=== PATIENT | female | born 1965 | race African-American/Black ===

== ENCOUNTER 2016-06-16 21:37 | Emergency (ER) | payer OTHER ==
[2016-06-16] MEDS ORDERED: ASPIRIN PO STA (21:47)
[2016-06-16 22:04] LABS: MANUAL DIFF NEEDED? NO
--- NOTE | 2016-06-16 22:04 | EKG Report ---
Test Performed on : 06/16/2016 9:54:00 PM Test Reason : CHEST PAIN Blood Pressure : / mmHG Vent. Rate : 086 BPM Atrial Rate : 086 BPM P-R Int : 126 ms QRS Dur : 078 ms QT Int : 374 ms P-R-T Axes : 046 011 088 degrees QTc Int : 447 ms Normal sinus rhythm. Normal ECG When compared with ECG of 06-MAY-2016 10:34, No significant change was found Unconfirmed Result
[2016-06-16 22:06] LABS: BASO% 0.3 % (0.0-0.8); EOS% 1.5 % (0.0-10.0); HEMATOCRIT 30.5 % (37.0-47.0); HEMOGLOBIN 9.9 g/dL (12.0-16.0); IMM GRAN# 0.01 X1000 (0.0-0.04); IMM GRAN% 0.2 % (0.0-0.5); LYMPH# 2.31 X1000 (1.2-3.4); LYMPH% 34.9 % (20.5-51.1); MCH 25.8 PG (27-31); MCHC 32.5 g/dL (33-37); MCV 79.4 FL (81-99); MONO% 9.1 % (1.7-9.3); PLT 282 X1000 (130-400); RBC 3.84 XMIL (4.2-5.4)
[2016-06-16 22:26] LABS: AGAP 11; ALBUMIN 3.7 g/dL (3.5-5.0); ALKALINE PHOSPHATASE 95 U/L (32-104); BUN 16 mg/dL (8-22); CALCIUM 9.4 mg/dL (8.8-10.2); CHLORIDE 98 mmol/L (98-107); COSMO 271; GOT 19 U/L (10-30); GPT 16 U/L (10-36); MAGNESIUM 1.8 mg/dL (1.5-2.7); POTASSIUM 3.6 mmol/L (3.5-5.1); SODIUM 132 mmol/L (136-145); TCO2 23 mmol/L (25-35)
[2016-06-16 22:31] LABS: CK PROFILE 215 U/L (24-173)
[2016-06-16 23:00] LABS: CK INDEX 2.6 (0.0-2.5); CK-MB 5.67 ng/mL (0.0-5.0)
--- NOTE | 2016-06-16 23:37 | PROVIDER DOCUMENTATION ---
HPI-Abdominal Pain/GI Problem - General Source: patient - History of Present Illness-ABD Nature of Presenting Problems: 50 year old F presents to the ED with a cc of nausea, vomiting, and hot flashes with an onset of this morning. PT states that she has vomited x2 today. PT states this evening she developed chest pressure. PT also c/o left ear feeling weird. Severity in ED: reports: mild Onset/Duration: reports: this morning Timing: reports: still present Activities at Onset: reports: none Modifying Factors: improves with: nothing Associated Symptoms: reports: headaches, nausea, vomiting # of Vomiting Episodes: 2 Bruising or Bleeding Gums?: No Similar Symptoms Previously?: No Recently seen or treated by another doctor?: No <Rosa M Blevins - Last Filed: 06/16/16 23:49> <Kenny Stallings - Last Filed: 06/17/16 02:09> - General Chief Complaint: Chest Pain Stated Complaint: CHEST PAIN Time Seen by Provider: 06/16/16 22:50 Allergies/Adverse Reactions: Patient Allergies Allergy/AdvReac Type Severity Reaction Status Date / Time metoclopramide HCl * Allergy Intermediate ITCHING Verified 06/16/16 21:43 [From Reglan] ondansetron HCl * Allergy Intermediate ITCHING Verified 06/16/16 21:43 [From Zofran] ketorolac tromethamine * Allergy Mild ITCHING Verified 06/16/16 21:43 [From Toradol] prochlorperazine edisylate * Allergy ITCHING Verified 06/16/16 21:43 [From Compazine] prochlorperazine maleate * Allergy ITCHING Verified 06/16/16 21:43 [From Compazine] tramadol HCl * [From Ultram] AdvReac Mild HEADACHE Verified 06/16/16 21:43 Home Medications: Home Medication List Medication Instructions Recorded Confirmed Last Taken Type Duloxetine HCl [Cymbalta] 60 mg PO BID 11/30/11 06/16/16 03/26/16 History Docusate Sodium [Colace] 100 mg PO BID #60 capsule 08/17/12 06/16/16 03/26/16 Rx Esomeprazole [Nexium] 40 mg PO DAILY 03/17/14 06/16/16 03/26/16 History Zolpidem [Ambien] 10 mg PO QHS 03/17/14 06/16/16 03/26/16 History Insulin Glargine [Lantus] 43 unit SUBQ BID 11/19/14 06/16/16 03/26/16 History Furosemide [Lasix] 80 mg PO DAILY 12/08/15 06/16/16 03/26/16 History Gabapentin [Neurontin] 600 mg PO Q8H 12/08/15 06/16/16 03/26/16 History Insulin Lispro [Humalog] 35 units SUBQ TID 12/08/15 06/16/16 03/26/16 History Multivit-Min/Iron/Folic/Lutein 1 tab PO DAILY 12/08/15 06/16/16 03/26/16 History [Centrum Silver Women Tablet] Potassium Chloride [Klor-Con M20] 20 meq PO DAILY 12/08/15 06/16/16 03/26/16 History Pravastatin Sodium [Pravachol] 1 tab PO QHS 12/08/15 06/16/16 03/26/16 History Spironolactone 25 mg PO DAILY 12/08/15 06/16/16 03/26/16 History Albuterol Sulfate [Albuterol 18 gm IH 3-4XDAY PRN PRN #1 02/26/16 06/16/1603/26 Rx Sulfate Hfa] hfa.[email or web address] Acetaminophen with Codeine 1 each PO Q4H PRN PRN #20 tablet 03/26/16 06/16/16 Unknown Rx [Tylenol with Codeine #3] Linaclotide [Linzess] 290 mcg PO DAILY PRN PRN #14 03/26/16 06/16/16 Unknown Rx capsule Famotidine [Pepcid] 20 mg PO DAILY #20 tablet 05/06/16 06/16/16 Unknown Rx Hydrocodone/APAP 7.5 mg/325 mg 1 each PO Q6H PRN PRN #10 tablet 05/06/16 Unknown Rx [[place]-7.5] Ibuprofen [Motrin] 600 mg PO Q8H PRN PRN #14 tablet 05/06/16 06/16/16 Unknown Rx Cephalexin [Keflex] 500 mg PO BID #14 capsule 06/17/16 Unknown Rx Promethazine [Phenergan] 25 mg PO Q6H PRN PRN #20 tablet 06/17/16 Unknown Rx Review of Systems - Adult - REVIEW OF SYSTEMS - ADULT Constitutional: denies: chills, fever Eyes: reports: no symptoms reported Ears, Nose, Mouth & Throat: denies: sinus problem, throat pain Cardiovascular: reports: chest pain. denies: palpitations Respiratory: denies: cough, shortness of breath Gastrointestinal: reports: nausea, vomiting. denies: abdominal pain Genitourinary: reports: no symptoms reported Musculoskeletal: reports: no symptoms reported Integumentary: reports: no symptoms reported Neurological: reports: headache/migraines. denies: dizziness/vertigo Psychiatric: reports: no symptoms reported Endocrine: reports: no symptoms reported Hematologic/Lymphatic: reports: no symptoms reported Allergic/Immunologic: reports: no symptoms reported All Other Systems: Reviewed and Negative <Rosa M Blevins - Last Filed: 06/16/16 23:49> Past History - Adult - PAST MEDICAL HISTORY-ADULT Review of Records: reports: Nursing Assessment Review, Medications Reviewed Major Childhood Illnesses: reports: denies history Cardiovascular: reports: CAD, HTN, hyperlipidemia, [place] Respiratory: reports: asthma, sleep apnea Gastrointestinal: reports: GERD Obstetrical/Gynecological: reports: denies history Genitourinary: reports: denies history Musculoskeletal: reports: chronic pain Neurological: reports: CVA Psychiatric: reports: anxiety, depression Endocrine/Immune: reports: Diabetes Other Conditions: reports: denies history Additional History: frequent ER visits - PRIOR SURGERIES/PROCEDURES Surgical/Procedure History: reports: CABG, cholecystectomy, back/neck, gastric bypass - IMMUNIZATION STATUS Childhood Immunizations: UTD, See Nurse Assessment Flu Vaccine: See Nurse Assessment - FAMILY HISTORY Family History: reviewed, not pertinent, CAD over 55 yo - SOCIAL HISTORY Smoking: non-smoker Substance Use: none/never Alcohol Use Frequency: never <Rosa M Blevins - Last Filed: 06/16/16 23:49> Physical Exam-General - PHYSICAL EXAM-ADULT Initial Vital Signs Reviewed: Yes - CONSTITUTIONAL General Appearance: appears well, alert, no apparent distress - HEAD, EARS, NOSE, MOUTH & THROAT HENMT: TM abnormal (fluid behing left TM) - RESPIRATORY Respiratory: chest non-tender, lungs clear, normal breath sounds - CARDIOVASCULAR Cardiovascular: normal peripheral pulses, regular rate, rhythm, no edema - SKIN Integumentary: normal color, normal turgor, warm/dry - PSYCHIATRIC Psych/Mental Status: normal mood/affect, normal thought content, normal thought process, oriented x 3 <GenRosa M gould - Last Filed: 06/16/16 23:49> Progress - EKG 1 Time of EKG reading by physician:: 21:54 EKG Read and Signed by:: Modesto Winchester EKG Interpretation (*Must complete 3 of following elements*): Normal Rate: 86 Rhythm: NSR <GenRosa M - Last Filed: 06/16/16 23:49> - REASSESSMENT Reassessment #1 Time Reassessed: 02:07 (Pt resting comfortably. Treating pyelonephritis identified on CT. Pt has refused to give urine sample but now has requested RN cath her for the sample. ) - CT/MRI 1 CT Study: Abdomen, Pelvis Impression: Abnormal (Lobulated fibroid uterus. Minor irregular enhancement involving the R superior pole kidney is nonspecific. Subtle pyelonephritis could have this appearance. Minor atelectasis dependently in the lung bases. - radiology) <Kenny Stallings - Last Filed: 06/17/16 02:09> Departure <GenRosa M - Last Filed: 06/16/16 23:49> - Departure Time of Disposition Order: 02:07 Certified Medical Emergency: Emergent <Kenny Stallings - Last Filed: 06/17/16 02:09> - Departure DIAGNOSIS: Pyelonephritis Disposition: HOME 01 Condition: Stable Additional Instructions: ED Follow Up Instructions: You have been treated by a care provider in the Emergency Department. These instructions are being provided to you so you can have an understanding of how to care for yourself upon discharge. Upon discharge from the Emergency Department, you are responsible for making arrangements for follow-up care by a physician of your choice. Take all prescribed medications as directed. Return to the Emergency Department immediately for any new or worsening symptoms. You may call the Physician Referral phone number at [phone] to obtain a list of Physicians who are taking new patients. Prescriptions: Cephalexin [Keflex] 500 mg PO BID #14 capsule Promethazine [Phenergan] 25 mg PO Q6H PRN PRN #20 tablet PRN Reason: Nausea Referrals: None,PCP [Primary Care Provider] - Attestation - Scribe Verification/Attestation Scribe:: Rosa M Blevins Acting as Scribe for:: Kenny Stallings Scribe documention review:: This chart was documented by a scribe and accurately reflects the service the provider performed and the decisions made by the provider. <Rosa M Blevins - Last Filed: 06/16/16 23:49> - Physician/ LOUIS Attestation Patient care was provided by Advanced Practice Provider:: Yes Advanced Practice Provider:: Kenny Stallings Advanced Practice Provider documentation review:: The Mid-level provider documentation, treatment plan and medical decision making was reviewed by the physician who agrees with all treatment and medical decision making by the MLP. <Kenny Stallings - Last Filed: 06/17/16 02:09> Physician Attestation
[2016-06-16 23:51] LABS: INR 1.03 (0.86-1.15); PROTIME 13.8 Seconds (12.1-15.5)
[2016-06-16 23:52] LABS: PTT PL 29.8 Seconds (22.6-43.9)
[2016-06-17] MEDS ORDERED: NS 1,000 ML IV ONE (00:02)
[2016-06-17] MEDS ORDERED: PHENERGAN IV ONE (00:03)
[2016-06-17] MEDS ORDERED: SODIUM CHLORIDE 0.9% INJ ONE (00:03)
[2016-06-17] MEDS ORDERED: ROCEPHIN 1 GM/NS 50 ML IV ONE (01:41)
[2016-06-17] MEDS ORDERED: G.I. COCKTAIL PO ONE (01:42)
[2016-06-17 02:10] LABS: URINE SOURCE CLEAN CATCH
[2016-06-17 02:46] VITALS: BP 126/68
[2016-06-17 02:51] LABS: BILIRUBIN URINE NEGATIVE (NEGATIVE); BLOOD URINE 4+ (NEGATIVE); CLARITY SL. CLOUDY (CLEAR); COLOR PINK; GLUCOSE URINE NEGATIVE (NEGATIVE); LEUKOCYTES URINE 1+ (NEGATIVE); NITRITE URINE NEGATIVE (NEGATIVE); PH URINE 6.5; PROTEIN URINE TRACE mg/dL (NEGATIVE); SP GRAVITY URINE 1.005; URINE CULTURE PL NEEDED? YES; URINE EPITHELIAL CELLS <10 /HPF (<10); URINE RBC TNTC /HPF (<10); URINE WBC <10 /HPF (<10); UROBILINOGEN URINE NORMAL
--- NOTE | 2016-06-17 07:54 | Diag Imaging Result Document ---
PROCEDURE NAME: CHEST-2 VIEWS - 06/16/2016 FRONTAL AND LATERAL CHEST, TWO VIEWS: COMPARISON: 05/06/2016. FINDINGS: Sternal wires and surgical clips are present. Poor inspiratory effort. The heart is not enlarged. The vessels are not distended. Questionable trace left effusion. Minimal atelectasis in the left base. No consolidation. No free air beneath the diaphragm. IMPRESSION: Poor inspiratory effort with minimal atelectasis in the left base.
--- NOTE | 2016-06-17 08:14 | Diag Imaging Result Document ---
PROCEDURE NAME: CT ABD/PELVIS W/ IV CONT ONLY - 06/17/2016 CT ABDOMEN AND PELVIS WITH INTRAVENOUS CONTRAST: FINDINGS: The heart is enlarged. Sternal wires are present. No effusions. The gallbladder has been removed. There is fatty infiltration of the liver. Normal spleen, adrenal glands, and pancreas. Slight irregular enhancement along the superior pole of the right kidney. No distinct mass. No hydronephrosis. Normal aorta. No bowel obstruction. Normal appendix. No abscess. No free air. The uterus is enlarged and there is a prominent pedunculated fibroid anteriorly measuring at least 5.3 cm in maximum diameter. The left ovary is prominent and there are several small ovarian cysts. The urinary bladder is distended and appears normal. Mildly prominent inguinal lymph nodes. IMPRESSION: 1. Questionable mild right upper pole pyelonephritis. 2. Cholecystectomy. 3. Fatty infiltration of the liver. 4. Large uterus with a prominent pedunculated fibroid anteriorly. 5. Prominent left ovary with several ovarian cysts. A preliminary report was given at 1:28 a.m..
== END 2016-06-17 02:45 | disposition home or self-care (01) ==
LOC: P.ED 21:37
DX: N12 Tubulo-interstitial nephritis, not specified as acute or chronic (principal); K76.0 Fatty (change of) liver, not elsewhere classified; N83.202 Unspecified ovarian cyst, left side; R11.2 Nausea with vomiting, unspecified; R07.89 Other chest pain; I25.10 Atherosclerotic heart disease of native coronary artery without angina pectoris; I10 Essential (primary) hypertension; E78.5 Hyperlipidemia, unspecified; Z79.899 Other long term (current) drug therapy; I25.2 Old myocardial infarction; J45.909 Unspecified asthma, uncomplicated; K21.9 Gastro-esophageal reflux disease without esophagitis; G89.29 Other chronic pain; E11.9 Type 2 diabetes mellitus without complications; F41.9 Anxiety disorder, unspecified; F32.9 Major depressive disorder, single episode, unspecified; Z79.4 Long term (current) use of insulin; Z86.73 Personal history of transient ischemic attack (TIA), and cerebral infarction without residual deficits; Z95.1 Presence of aortocoronary bypass graft; Z98.84 Bariatric surgery status; Z82.49 Family history of ischemic heart disease and other diseases of the circulatory system
CPT/HCPCS: 71020; 74177; 80053; 81001; 82550; 82553; 83735; 83880; 84484; 85025; 85379; 85610; 85730; 87088; 93005; 96361; 96365; 96375; J0696; J2550; J7030; Q9967

== ENCOUNTER 2016-12-09 16:36 | Inpatient (IN) ==
[2016-12-09] MEDS ORDERED: MORPHINE IV ONE (16:54)
[2016-12-09] MEDS ORDERED: PHENERGAN IM ONE (16:54)
[2016-12-09] MEDS ORDERED: NS 1,000 ML IV ONE ×3 (16:54→20:50)
--- NOTE | 2016-12-09 16:58 | PROVIDER DOCUMENTATION ---
HPI-Abdominal Pain/GI Problem - General Chief Complaint: Abdominal Pain Stated Complaint: ABD PAIN/VOMITING Time Seen by Provider: 12/09/16 16:45 Source: patient Allergies/Adverse Reactions: Patient Allergies Allergy/AdvReac Type Severity Reaction Status Date / Time metoclopramide HCl * Allergy Intermediate ITCHING Verified 12/09/16 16:43 [From Reglan] ondansetron HCl * Allergy Intermediate ITCHING Verified 12/09/16 16:43 [From Zofran] ketorolac tromethamine * Allergy Mild ITCHING Verified 12/09/16 16:43 [From Toradol] prochlorperazine edisylate * Allergy ITCHING Verified 12/09/16 16:43 [From Compazine] prochlorperazine maleate * Allergy ITCHING Verified 12/09/16 16:43 [From Compazine] tramadol HCl * [From Ultram] AdvReac Mild HEADACHE Verified 12/09/16 16:43 Home Medications: Home Medication List Medication Instructions Recorded Confirmed Last Taken Type Duloxetine HCl [Cymbalta] 60 mg PO BID 11/30/11 10/14/16 03/26/16 History Docusate Sodium [Colace] 100 mg PO BID #60 capsule 08/17/12 10/14/16 03/26/16 Rx Esomeprazole [Nexium] 40 mg PO DAILY 03/17/14 10/14/16 03/26/16 History Zolpidem [Ambien] 10 mg PO QHS 03/17/14 10/14/16 03/26/16 History Insulin Glargine [Lantus] 43 unit SUBQ BID 11/19/14 10/14/16 03/26/16 History Furosemide [Lasix] 80 mg PO DAILY 12/08/15 10/14/16 03/26/16 History Gabapentin [Neurontin] 600 mg PO Q8H 12/08/15 10/14/16 03/26/16 History Insulin Lispro [Humalog] 35 units SUBQ TID 12/08/15 10/14/16 03/26/16 History Multivit-Min/Iron/Folic/Lutein 1 tab PO DAILY 12/08/15 10/14/16 03/26/16 History [Centrum Silver Women Tablet] Potassium Chloride [Klor-Con M20] 20 meq PO DAILY 0910/14/16 03/26/16 History Pravastatin Sodium [Pravachol] 1 tab PO QHS 12/08/15 10/14/16 03/26/16 History Spironolactone 25 mg PO DAILY 12/08/15 10/14/16 03/26/16 History Albuterol Sulfate [Albuterol 18 gm IH 3-4XDAY PRN PRN #1 02/26/16 10/14/1603/26 Rx Sulfate Hfa] hfa.aer.ad Hydrocodone/Acetaminophen [[place] 1 tab PO TID 10/14/16 10/14/16 Unknown History 10-325 Tablet] - History of Present Illness-ABD Nature of Presenting Problems: patient presents complaining of 2 day history of lower abd pain associated with nausea and vomiting. She is a diabetic. She denies chest pain, dyspnea, fever , diarrhea. Abdominal Pain Onset Location: reports: other (lower abd) Pain Radiation: reports: no radiation Quality of Pain: reports: aching Severity in ED: reports: moderate Onset/Duration: reports: 2 days ago Timing: reports: still present Activities at Onset: reports: none Exposure to sick contacts?: No Modifying Factors: improves with: nothing Associated Symptoms: reports: nausea, vomiting. denies: anxiety, chest pain, constipation, fatigue, fever/chills, headaches, joint pain, malaise, sensory/ motor loss, pain with inspiration, trouble walking Last BM: unsure Dark Stools Present?: reports: none noticed Rectal Bleeding: reports: none Rectal Pain: reports: none Bruising or Bleeding Gums?: No Similar Symptoms Previously?: No Recently seen or treated by another doctor?: No Review of Systems - Adult - REVIEW OF SYSTEMS - ADULT Constitutional: reports: no symptoms reported Eyes: reports: no symptoms reported Ears, Nose, Mouth & Throat: reports: no symptoms reported Cardiovascular: reports: no symptoms reported Respiratory: reports: no symptoms reported Gastrointestinal: reports: see HPI, abdominal pain, nausea, vomiting Genitourinary: reports: no symptoms reported Musculoskeletal: reports: no symptoms reported Integumentary: reports: no symptoms reported Neurological: reports: no symptoms reported Psychiatric: reports: no symptoms reported Endocrine: reports: no symptoms reported Hematologic/Lymphatic: reports: no symptoms reported Allergic/Immunologic: reports: no symptoms reported All Other Systems: Reviewed and Negative Past History - Adult - PAST MEDICAL HISTORY-ADULT Review of Records: reports: Old Records Reviewed, Nursing Assessment Review, Medications Reviewed, Social history reviewed & non-contributory. Major Childhood Illnesses: reports: denies history Cardiovascular: reports: CAD, HTN, hyperlipidemia, [place] Respiratory: reports: asthma, sleep apnea Gastrointestinal: reports: GERD Obstetrical/Gynecological: reports: denies history Genitourinary: reports: denies history Musculoskeletal: reports: chronic pain Neurological: reports: CVA Psychiatric: reports: anxiety, depression Endocrine/Immune: reports: Diabetes Other Conditions: reports: denies history Additional History: frequent ER visits - PRIOR SURGERIES/PROCEDURES Surgical/Procedure History: reports: CABG, cholecystectomy, back/neck, gastric bypass - IMMUNIZATION STATUS Childhood Immunizations: UTD, See Nurse Assessment Flu Vaccine: See Nurse Assessment - FAMILY HISTORY Family History: reviewed, not pertinent, CAD over 55 yo - SOCIAL HISTORY Smoking: denies Substance Use: none/never Alcohol Use Frequency: never Living Situation: family Physical Exam-General - PHYSICAL EXAM-ADULT Initial Vital Signs Reviewed: Yes - CONSTITUTIONAL General Appearance: appears well, alert, no apparent distress - EYES Eyes: PERRL/EOMI, pink conjunctivae - RESPIRATORY Respiratory: chest non-tender, lungs clear, normal breath sounds - CARDIOVASCULAR Cardiovascular: normal peripheral pulses, regular rate, rhythm - GASTROINTESTINAL (ABDOMEN) Abdominal Exam: normal bowel sounds, soft, tenderness (lower abd) - LYMPHATIC Lymphatic: no adenopathy - MUSCULOSKELETAL Back Exam: normal inspection, no CVA tenderness Extremity: normal range of motion, non-tender, normal inspection - SKIN Integumentary: normal color, normal turgor, warm/dry - NEUROLOGIC Neurologic: grossly normal - PSYCHIATRIC Psych/Mental Status: normal mood/affect, oriented x 3 Progress - PLAN OF CARE/RESULTS Progress/Plan/Lab Results: Vital Signs - 8 hr 12/09/16 16:41 Temperature 98 F Pulse Rate 99 H Respiratory Rate 18 Blood Pressure 141/78 O2 Sat by Pulse Oximetry 100 Orders Category Date Time Status ED: Urine Bedside ORDERED Care 12/09/16 16:55 Active Saline Loc DIRECTED Care 12/09/16 16:54 Active NPO Diet 12/09/16 16:[address] ABDOMEN/PELVIS W/O CONTRAST [CT] Stat Exams 12/09/16 16:54 Ordered CBC WITH ELECTRONIC DIFF [HEME] Stat Lab 12/09/16 16:54 Ordered COMPREHENSIVE METABOLIC PANEL [CHEM] Stat Lab 12/09/16 16:54 Ordered LIPASE [CHEM] Stat Lab 12/09/16 16:[address] W/POSS RFLX CULT [URINALYSIS] Stat Lab 12/09/16 16:54 Uncollected 0.9% Sodium Chloride Inj [Ns] 1,000 ml Med 12/09/16 16:54 Active IV 999 mls/hr Morphine Med 12/09/16 16:54 Discontinued 4 mg IV NOW ONE Promethazine [Phenergan] Med 12/09/16 16:54 Discontinued 25 mg IM NOW ONE Result Diagrams: 12/09/16 17:30 12/09/16 17:30 - REASSESSMENT Reassessment #1 Time Reassessed: 19:53 Status: unchanged (pt still vomiting.) - CT/MRI 1 CT Study: Abdomen, Pelvis Impression: See EMR Report (constipation; gastric outlet obstruction vs gastroparesis.) - CHANGE OF SHIFT REPORT (ED Provider) Report Given and Care Transferred to:: Dr. Chanel Time of Transfer: 19:52 Items Pending: Physician Consult/Arrival Departure - Departure Date of Disposition Decision: 12/09/16 Time of Disposition Decision: 19:53 DIAGNOSIS: Intractable nausea and vomiting Qualifiers: Vomiting type: unspecified Qualified Code(s): R11.2 - Nausea with vomiting, unspecified Abdominal pain Qualifiers: Abdominal location: unspecified location Qualified Code(s): R10.9 - Unspecified abdominal pain Disposition: ADMITTED INPATIENT 09 Certified Medical Emergency: Emergent Condition: Stable Referrals and Follow-Ups: Yue Pope CRNP [Primary Care Provider] - - Critical Care Note This patient required my direct & personal management of CC.: No Attestation - Physician/ LOUIS Attestation Patient care was provided by Advanced Practice Provider:: Yes Advanced Practice Provider:: Adeel Oscar Advanced Practice Provider documentation review:: The Mid-level provider documentation, treatment plan and medical decision making was reviewed by the physician who agrees with all treatment and medical decision making by the MLP. The physician spent face to face time with patient:: No Advanced Practice Provider documentation review:: Supervising physician onsite and consulted in the evaluation and care of this patient. The physician did not have a face to face encounter with the patient.
[2016-12-09 17:33] LABS: MANUAL DIFF NEEDED? NO
[2016-12-09 17:36] LABS: BASO% 0.4 % (0.0-0.8); EOS# 0.11 X1000 (0.0-0.7); EOS% 1.5 % (0.0-10.0); HEMATOCRIT 33.2 % (37.0-47.0); HEMOGLOBIN 10.4 g/dL (12.0-16.0); LYMPH# 2.23 X1000 (1.2-3.4); LYMPH% 31.4 % (20.5-51.1); MCH 24.8 PG (27-31); MCHC 31.3 g/dL (33-37); MCV 79.2 FL (81-99); MONO# 0.49 X1000 (0.11-0.59); MONO% 6.9 % (1.7-9.3); MPV 10.5 FL (7.4-10.4); NEUT% 59.8 % (42.2-75.2); PLT 274 X1000 (130-400); RBC 4.19 XMIL (4.2-5.4)
[2016-12-09 17:44] LABS: BILIRUBIN URINE NEGATIVE (NEGATIVE); BLOOD URINE 2+ (NEGATIVE); CLARITY VERY CLOUDY (CLEAR); COLOR YELLOW; LEUKOCYTES URINE 2+ (NEGATIVE); NITRITE URINE NEGATIVE (NEGATIVE); PROTEIN URINE 1+(30 mg/dL) mg/dL (NEGATIVE); UROBILINOGEN URINE NORMAL
[2016-12-09 17:54] LABS: URINE CAST NONE SEEN /LPF; URINE CULTURE PL NEEDED? YES; URINE EPITHELIAL CELLS >10 /HPF (<10); URINE SOURCE CLEAN CATCH
[2016-12-09 17:55] LABS: URINE CRYSTAL URIC ACID PRESENT /HPF
[2016-12-09 18:28] LABS: AGAP 10; ALBUMIN 3.8 g/dL (3.5-5.0); ALKALINE PHOSPHATASE 83 U/L (32-104); BUN 20 mg/dL (8-22); CALCIUM 9.3 mg/dL (8.8-10.2); CHLORIDE 101 mmol/L (98-107); COSMO 282; GOT 22 U/L (10-30); GPT 15 U/L (10-36); LIPASE 81 U/L (13-60); POTASSIUM 4.5 mmol/L (3.5-5.1); SODIUM 132 mmol/L (136-145); TCO2 21 mmol/L (25-35); TOTAL BILIRUBIN < 0.15 mg/dL (0.20-1.00); TOTAL PROTEIN 7.7 g/dL (6.3-8.3)
--- NOTE | 2016-12-09 18:30 | Diag Imaging Result Doc PS360 ---
EXAM: CT ABDOMEN/PELVIS W/O CONTRAST HISTORY: lower abd pain TECHNIQUE: CT urogram without contrast COMMENT: The visualized portion of the chest is unremarkable and unchanged in appearance since the previous examination of 06/17/2016. There is a large amount of retained food particles within the stomach. There has been cholecystectomy. There is some fullness of both renal collecting systems. There is no evidence of ureterolithiasis. There is stool throughout the colon. Small bowel is not distended. The appendix is normal in appearance. There are multiple uterine fibroids as were better seen on the previous contrast study. The left ovary is prominent but not particularly changed since the previous study. There is no evidence of free fluid. Urinary bladder contains gas. This may have been introduced during instrumentation, however the regional skeleton is stable in appearance. The possibility of urinary tract and infection cannot be excluded. IMPRESSION: Constipation. The possibility of gastric outlet obstruction or gastroparesis cannot be excluded. No evidence of urolithiasis or acute obstruction. Fibroid uterus. Electronically signed by Mendel Corona 12/09/2016 6:28 PM
[2016-12-09] MEDS ORDERED: PHENERGAN IV ONE (20:50)
[2016-12-09] MEDS ORDERED: SODIUM CHLORIDE 0.9% INJ ONE (20:50)
[2016-12-09] MEDS ORDERED: LANTUS INSULIN (PARKWAY) SUBQ ONE (20:57)
[2016-12-09] MEDS: MORPHINE IM PRN (22:47)
[2016-12-09] MEDS: PHENERGAN IM PRN (22:47)
[2016-12-09] MEDS: HUMULIN R (PARKWAY) SUBQ SCH (22:53)
[2016-12-10] MEDS: MORPHINE IM PRN (05:42)
[2016-12-10] MEDS: PHENERGAN IM PRN (05:42)
[2016-12-10] MEDS: HUMULIN R (PARKWAY) SUBQ SCH ×4 (06:26→20:19)
[2016-12-10] MEDS ORDERED: PHENERGAN IV PRN (09:30)
[2016-12-10] MEDS ORDERED: MORPHINE IV PRN (09:30)
[2016-12-10] MEDS ORDERED: VENTOLIN HFA INH PRN (09:48)
[2016-12-10] MEDS: PHENERGAN IV PRN ×3 (09:57→20:19)
[2016-12-10] MEDS: MORPHINE IV PRN ×3 (09:57→20:20)
[2016-12-10] MEDS: SODIUM CHLORIDE 0.9% INJ PRN ×2 (09:57→15:07)
[2016-12-10] MEDS: NS 1,000 ML IV SCH ×2 (09:59→16:57)
[2016-12-10 10:21] LABS: HEMOGLOBIN A1C 8.8 % (4.8-6.0)
[2016-12-10] MEDS ORDERED: HUMALOG DOSE (PARKWAY) SUBQ SCH (11:00)
[2016-12-10] MEDS: ROCEPHIN 1 GM in NS 50 ML IV SCH (11:27)
[2016-12-10] MEDS: THERA M PLUS PO SCH (11:28)
[2016-12-10] MEDS: ALDACTONE PO SCH (11:28)
[2016-12-10] MEDS: CYMBALTA PO SCH ×2 (11:28→20:21)
[2016-12-10] MEDS: LASIX PO SCH (11:28)
[2016-12-10] MEDS: NEXIUM PO SCH (11:28)
[2016-12-10] MEDS: COLACE PO SCH ×2 (11:29→20:20)
[2016-12-10] MEDS: KLOR-CON PO SCH (11:29)
--- NOTE | 2016-12-10 13:18 | HISTORY AND PHYSICAL ---
DATE OF : 1965. DATE OF ADMISSION: 12/09/2016. PRIMARY CARE PHYSICIAN: ALEXANDRA Christie. CHIEF COMPLAINTS: 1. Lower abdominal pain. 2. Nausea, vomiting x2 days. HISTORY OF PRESENTING ILLNESS: This is a 50-year-old, female who presents to [facility] ER with complaints of a lower abdominal pain and nausea, vomiting x2 days. States that there has been no precipitating factors or alleviating factors with the nausea, vomiting. Workup in the ER showed a sodium of 132, a blood sugar of 366, a lipase of 81. A urinalysis showed 2+ white blood cells, 2+ bacteria. A CT of the abdomen and pelvis showed constipation and the possibility of gastric outlet obstruction or gastroparesis could not be excluded. No evidence of urolithiasis or acute obstruction and a fibroid uterus. So, she was admitted to the medical unit for further evaluation and treatment. PAST MEDICAL HISTORY: 1. Coronary artery disease. 2. Hypertension. 3. Hyperlipidemia. 4. DE. 5. Asthma. 6. Sleep apnea. 7. GERD. 8. CVA. 9. Anxiety. 10. Depression. 11. Diabetes type 2. PAST SURGICAL HISTORY: 1. CABG. 2. Cholecystectomy. 3. Back and neck surgery. 4. Gastric bypass. FAMILY HISTORY: Noncontributory. SOCIAL HISTORY: She currently lives with family and denies any tobacco, alcohol , or illicit drug use. ALLERGIES: She is allergic to: 1. Reglan. 2. Zofran. 3. Toradol. 4. Compazine. 5. Ultram. HOME MEDICATIONS: 1. She takes albuterol inhaler 3-4 times daily p.r.n. 2. Colace 100 mg p.o. b.i.d. 3. Cymbalta 60 mg p.o. b.i.d. 4. Nexium 40 mg p.o. daily. 5. Lasix 80 mg p.o. daily. 6. Gabapentin 800 mg p.o. t.i.d. 7. Lantus 40 units subcutaneously b.i.d. We will begin that tonight at 9 p.m. 8. Humalog 35 units subcutaneous t.i.d. 9. Centrum vitamin 1 p.o. daily. 10. Potassium 20 mEq p.o. daily. 11. Pravachol 120 mg p.o. at bedtime. 12. Spironolactone 25 mg p.o. daily. 13. Ambien 10 mg p.o. at bedtime. LABORATORY DATA: CBC: Showed a white blood cell count of 7.10, hemoglobin at 10.4, hematocrit 33.2, platelets 274,000. Chem: Sodium of 132, potassium 4.5, chloride 101, CO2 21, BUN of 20, creatinine 1.1, glucose 366. Lipase: 81. Urinalysis: Negative nitrites, but 2+ white blood cells, 2+ bacteria. Urine culture: Pending. IMAGING STUDIES: CT of the abdomen and pelvis: With constipation and the possibility of a gastric outlet obstruction or gastroparesis could not be excluded. No evidence of urolithiasis or acute obstruction and a fibroid uterus. REVIEW OF SYSTEMS: She denied any fever, chills, blurred vision, dizziness, chest pain, coughing, shortness of breath. She was positive for lower abdomen pain, nausea, vomiting, denied any diarrhea. Is positive for constipation and denied any burning or hurting with urination. PHYSICAL EXAMINATION: VITALS: On arrival, she had a temperature of 98 degrees, pulse of 99, respirations 18, blood pressure 141/78, saturating 100% on room air. GENERAL: This is a 50-year-old, female who is lying in the bed and answers questions appropriately. HEENT: Normocephalic and atraumatic. The pupils are equal, round, reactive to light. The extraocular movements are intact. The oropharynx and nares are clear. NECK: Supple. LUNGS: Clear to auscultation bilaterally with equal lung expansion and chest wall movement. HEART: With regular rate and rhythm. No murmurs, rubs, or gallops. ABDOMEN: Soft. There is some tenderness to palpation to the lower abdomen. Bowel sounds are hypoactive x4 quadrants. EXTREMITIES: No clubbing, cyanosis, or edema. NEUROLOGICAL: The cranial nerves 2-12 appear grossly intact. ASSESSMENT: 1. Lower abdominal pain, most likely secondary to a gastroparesis. 2. Intractable nausea, vomiting. 3. Urinary tract infection. 4. Hyponatremia. 5. Diabetes type 2 with hyperglycemia. PLAN: 1. She has been admitted to the medical floor. 2. Placed on a clear liquid diet. 3. Urine culture again is pending. 4. We will place on normal saline at 125 mL an hour. We will give her morphine 1-2 mg IV every 4 hours p.r.n., Phenergan 25 mg IV every 4 hours p.r.n. 5. Recheck a CBC and a BMP in the a.m. We will also check a hemoglobin A1c today. 6. Continue her home medications as previously identified. This is ALEXANDRA Hammer, dictating for Dr. Ortiz. Patient seen and examined by me face to face, all the lab work, images, vitals signs, were reviewed, she does not have a formal study to rule out Gastroparesis , but based on her symptoms, and her uncontrolled diabetes , gastroparesis is most likely the diagnosis, she will be on fluids, nausea medications, she is allergic to reglan, I agree with all the assessment and plan, Anton Michelle MD Dictated by ALEXANDRA Hammer for Anton Moore MD cc: ALEXANDRA Hammer MD Jennifer Beatty, CRNP [facility]
[2016-12-10] MEDS: NEURONTIN PO SCH ×2 (13:24→20:20)
[2016-12-10] MEDS: LANTUS INSULIN (PARKWAY) SUBQ SCH (20:19)
[2016-12-10] MEDS: AMBIEN PO SCH (20:20)
[2016-12-10] MEDS: PRAVACHOL PO SCH (20:21)
[2016-12-11] MEDS: SODIUM CHLORIDE 0.9% INJ PRN ×2 (01:38→15:36)
[2016-12-11] MEDS: PHENERGAN IV PRN ×4 (01:38→21:19)
[2016-12-11] MEDS: MORPHINE IV PRN ×4 (01:38→21:18)
[2016-12-11] MEDS: NS 1,000 ML IV SCH ×3 (01:40→21:18)
[2016-12-11] MEDS: NEURONTIN PO SCH ×3 (06:01→21:17)
[2016-12-11] MEDS: HUMULIN R (PARKWAY) SUBQ SCH ×4 (06:02→21:21)
[2016-12-11 06:03] LABS: MANUAL DIFF NEEDED? NO
[2016-12-11 06:14] LABS: BASO% 0.1 % (0.0-0.8); EOS# 0.04 X1000 (0.0-0.7); EOS% 0.5 % (0.0-10.0); HEMATOCRIT 29.6 % (37.0-47.0); LYMPH# 1.46 X1000 (1.2-3.4); LYMPH% 17.3 % (20.5-51.1); MCHC 30.4 g/dL (33-37); MCV 78.9 FL (81-99); MONO# 0.46 X1000 (0.11-0.59); MONO% 5.5 % (1.7-9.3); NEUT% 76.6 % (42.2-75.2); PLT 268 X1000 (130-400); RBC 3.75 XMIL (4.2-5.4)
[2016-12-11 06:33] LABS: AGAP 10; BUN 16 mg/dL (8-22); CALCIUM 8.7 mg/dL (8.8-10.2); CHLORIDE 103 mmol/L (98-107); COSMO 279; POTASSIUM 4.3 mmol/L (3.5-5.1); SODIUM 135 mmol/L (136-145); TCO2 23 mmol/L (25-35)
[2016-12-11] MEDS: LANTUS INSULIN (PARKWAY) SUBQ SCH ×3 (08:42→21:20)
[2016-12-11] MEDS: CYMBALTA PO SCH ×2 (08:43→21:17)
[2016-12-11] MEDS: KLOR-CON PO SCH (08:43)
[2016-12-11] MEDS: NEXIUM PO SCH (08:43)
[2016-12-11] MEDS: ALDACTONE PO SCH (08:43)
[2016-12-11] MEDS: THERA M PLUS PO SCH (08:43)
[2016-12-11] MEDS: LASIX PO SCH (08:43)
[2016-12-11] MEDS: COLACE PO SCH ×2 (08:43→21:17)
[2016-12-11] MEDS: ROCEPHIN 1 GM in NS 50 ML IV SCH (09:59)
[2016-12-11] MEDS: LACTULOSE PO SCH (12:53)
--- NOTE | 2016-12-11 13:13 | PROGRESS NOTE ---
DATE: 12/11/2016 SUBJECTIVE: This patient feels a little bit better today. She is still having nausea but compared with the previous days, she feels better. She had one episode of vomiting in the morning. This patient is still on a liquid diet. She has been walking. She has been passing gas and having the small BMs. The last time she had a bowel movement was yesterday, small but not today. She denies headache or shortness of breath. OBJECTIVE: Vital Signs: Temperature 97.8 degrees, pulse 99, respiratory rate 20, blood pressure 137/80, oxygen saturation 98 on room air. HEENT: Head normocephalic. No trauma. PERRLA. Neck: Supple. No JVD. No masses. Central trachea. Chest: Clear to auscultation. No wheezing. No rales. Abdomen: Soft, mild tenderness to palpation at the level of the epigastric area and periumbilical area, tympanic. Extremities: No edema. No clubbing. No cyanosis. Neurological: The patient is alert and oriented x3. No focal deficits. LABORATORY: WBC 8.4, hemoglobin 9, hematocrit 29.6, platelets 268,000. Sodium 135, potassium 4.3, chloride 103, bicarbonate 23, BUN 16, creatinine 0.9, glucose 235, calcium 8.7. Hemoglobin A1c 8.8. ASSESSMENT AND PLAN: 1. Abdominal pain with mild distention. This patient has type 2 diabetes. Her hemoglobin A1c is 8.8, so I do not think this patient is doing good with her blood sugars at home. Since admission, I have been treating this patient for gastroparesis. We did a CT scan that showed constipation, the possibility of gastroparesis, and gastric outlet obstruction. I do believe that if this patient in 1 or 2 days does not get better, she needs to go to [facility] to get an evaluation by Gastroenterology Department. She has been getting docusate 100 mg p.o. twice a day, and I will put this patient on lactulose 1 dose daily as scheduled to help her with the constipation and her bowel movement. Also, I have ordered physical therapy for this patient. I do not to see this patient too much time on the bed. I think it is better for her bowel function if she walks more. Blood sugar is still elevated, and I have increased her dose of Lantus. 2. Intractable nausea and vomiting. This is a little bit better, but she is still having nausea, and she vomited this morning. Continue with the same management. 3. Urinary tract infection. Continue with antibiotics. 4. Hyponatremia, resolved. 5. Type 2 diabetes. Like I mentioned before, the hemoglobin A1c is 8.8, I have increased the dose of Lantus. cc: Anton Moore MD
[2016-12-11] MEDS: AMBIEN PO SCH (21:17)
[2016-12-11] MEDS: PRAVACHOL PO SCH (21:17)
[2016-12-12] MEDS: PHENERGAN IV PRN ×4 (05:34→20:20)
[2016-12-12] MEDS: NEURONTIN PO SCH ×3 (05:34→20:21)
[2016-12-12] MEDS: MORPHINE IV PRN ×4 (05:34→20:20)
[2016-12-12] MEDS: NS 1,000 ML IV SCH ×3 (05:35→20:26)
[2016-12-12 05:54] LABS: MANUAL DIFF NEEDED? NO
[2016-12-12 05:58] LABS: BASO% 0.3 % (0.0-0.8); EOS# 0.12 X1000 (0.0-0.7); EOS% 1.6 % (0.0-10.0); HEMATOCRIT 28.8 % (37.0-47.0); HEMOGLOBIN 9.1 g/dL (12.0-16.0); IMM GRAN# 0.01 X1000 (0.0-0.04); IMM GRAN% 0.1 % (0.0-0.5); LYMPH# 1.86 X1000 (1.2-3.4); LYMPH% 24.6 % (20.5-51.1); MCH 25.1 PG (27-31); MCHC 31.6 g/dL (33-37); MCV 79.3 FL (81-99); MONO# 0.56 X1000 (0.11-0.59); MONO% 7.4 % (1.7-9.3); MPV 10.3 FL (7.4-10.4); PLT 244 X1000 (130-400); RBC 3.63 XMIL (4.2-5.4)
[2016-12-12 06:25] LABS: AGAP 11; ALBUMIN 3.2 g/dL (3.5-5.0); ALKALINE PHOSPHATASE 107 U/L (32-104); BUN 13 mg/dL (8-22); CALCIUM 8.4 mg/dL (8.8-10.2); CHLORIDE 104 mmol/L (98-107); COSMO 280; GOT 23 U/L (10-30); GPT 28 U/L (10-36); SODIUM 136 mmol/L (136-145); TCO2 22 mmol/L (25-35); TOTAL BILIRUBIN < 0.15 mg/dL (0.20-1.00); TOTAL PROTEIN 6.8 g/dL (6.3-8.3)
[2016-12-12] MEDS: HUMULIN R (PARKWAY) SUBQ SCH ×4 (06:31→20:49)
[2016-12-12] MEDS: LACTULOSE PO SCH (08:30)
[2016-12-12] MEDS: CYMBALTA PO SCH ×2 (08:30→20:20)
[2016-12-12] MEDS: THERA M PLUS PO SCH (08:30)
[2016-12-12] MEDS: NEXIUM PO SCH (08:30)
[2016-12-12] MEDS: LASIX PO SCH (08:30)
[2016-12-12] MEDS: KLOR-CON PO SCH (08:31)
[2016-12-12] MEDS: ALDACTONE PO SCH (08:31)
[2016-12-12] MEDS: COLACE PO SCH ×2 (08:31→20:20)
[2016-12-12] MEDS: LANTUS INSULIN (PARKWAY) SUBQ SCH ×2 (08:32→20:19)
[2016-12-12] MEDS: ROCEPHIN 1 GM in NS 50 ML IV SCH (10:56)
[2016-12-12] MEDS: SODIUM CHLORIDE 0.9% INJ PRN ×2 (11:00→16:15)
--- NOTE | 2016-12-12 16:51 | PROGRESS NOTE ---
DATE: 12/12/2016 SUBJECTIVE: Today Ms. Renner refers to be doing a little better. Continues to have abdominal discomfort and nauseated. OBJECTIVE: Vital signs: Blood pressure is 134/85, pulse of 93, respirations 20 , temperature 97.9 degrees. General: Ms. Renner is a 50-year-old, female. She is in bed, is not in any remarkable distress. HEENT: Mucosa is pink and moist. Anicteric. Acyanotic. Neck: Supple. Chest: Good air entry bilateral. No crepitations. No rhonchi. Cardiovascular: Regular rate and rhythm. Abdomen: Soft, distended. There is not any hernial defect. Extremities: No pedal edema. RADIOACTIVITY TECHNICIAN: Patient is awake and alert and oriented. There is no focal neurological deficit. LABORATORY DATA: WBC is 7.57, hemoglobin is 9.1, platelet count of 244,000. Chemistry is reviewed. Sodium is 136, potassium is 4, chloride is 106, bicarb is 22, and glucose is 236. IMAGING: Review of the CT scan report shows constipation, possible gastric outlet obstruction or gastroparesis. No evidence of urolithiasis. ASSESSMENT: 1. Abdominal pain, likely secondary to constipation. 2. Gastric outlet obstruction versus gastroparesis. I think this is either due to diabetes induced autonomic dysfunction versus opioid induced gut paralysis. We are going to discontinue all opioid medications use something else for pain control and put the patient on bowel regimen. Hopefully get her bowels to move. 3. Intractable nausea and vomiting. 4. Hyponatremia. 5. Uncontrolled diabetes mellitus. The patient is currently on insulin we will continue with that regimen. 6. Microcytic anemia. We will do iron studies to better characterize this. cc: Xu Leo MD [facility]ITAL[facility]arker
[2016-12-12] MEDS: MIRALAX PO SCH (20:19)
[2016-12-12] MEDS: PRAVACHOL PO SCH (20:20)
[2016-12-12] MEDS: AMBIEN PO SCH (20:20)
[2016-12-13] MEDS: NEURONTIN PO SCH ×3 (05:18→20:37)
[2016-12-13] MEDS: NS 1,000 ML IV SCH ×2 (05:20→17:41)
[2016-12-13] MEDS: PHENERGAN IV PRN ×2 (05:26→12:36)
[2016-12-13] MEDS: MORPHINE IV PRN ×2 (05:26→12:36)
[2016-12-13 06:29] LABS: MANUAL DIFF NEEDED? NO
[2016-12-13 06:38] LABS: BASO% 0.3 % (0.0-0.8); EOS# 0.12 X1000 (0.0-0.7); EOS% 1.9 % (0.0-10.0); HEMATOCRIT 29.7 % (37.0-47.0); IMM GRAN# 0.01 X1000 (0.0-0.04); IMM GRAN% 0.2 % (0.0-0.5); LYMPH# 1.71 X1000 (1.2-3.4); LYMPH% 26.6 % (20.5-51.1); MCH 24.1 PG (27-31); MCHC 30.3 g/dL (33-37); MCV 79.4 FL (81-99); MONO# 0.54 X1000 (0.11-0.59); MONO% 8.4 % (1.7-9.3); MPV 10.6 FL (7.4-10.4); NEUT% 62.6 % (42.2-75.2); PLT 253 X1000 (130-400); RBC 3.74 XMIL (4.2-5.4)
[2016-12-13 07:02] LABS: AGAP 8; BUN 12 mg/dL (8-22); CALCIUM 8.3 mg/dL (8.8-10.2); CHLORIDE 102 mmol/L (98-107); COSMO 273; IRON SATURATION 9 %; SODIUM 136 mmol/L (136-145); TCO2 26 mmol/L (25-35); TIBC 322 ug/dL; TOTAL IRON 28 ug/dL (49-151); UNBOUND IRON 294 ug/dL (112-346)
[2016-12-13] MEDS: HUMULIN R (PARKWAY) SUBQ SCH ×4 (07:56→20:37)
[2016-12-13] MEDS: LASIX PO SCH (09:12)
[2016-12-13] MEDS: LACTULOSE PO SCH (09:12)
[2016-12-13] MEDS: MIRALAX PO SCH ×2 (09:12→20:38)
[2016-12-13] MEDS: THERA M PLUS PO SCH (09:13)
[2016-12-13] MEDS: COLACE PO SCH ×2 (09:13→20:37)
[2016-12-13] MEDS: CYMBALTA PO SCH (09:13)
[2016-12-13] MEDS: ALDACTONE PO SCH (09:13)
[2016-12-13] MEDS: NEXIUM PO SCH (09:13)
[2016-12-13] MEDS: KLOR-CON PO SCH (09:13)
[2016-12-13] MEDS: LANTUS INSULIN (PARKWAY) SUBQ SCH ×2 (09:13→20:37)
[2016-12-13] MEDS: ROCEPHIN 1 GM in NS 50 ML IV SCH (09:16)
[2016-12-13] MEDS: SODIUM CHLORIDE 0.9% INJ PRN ×2 (12:35→20:37)
[2016-12-13] MEDS ORDERED: VENOFER 300 MG in NS 250 ML IV ONE (16:55)
[2016-12-13] MEDS ORDERED: VENOFER ONE (17:35)
[2016-12-13] MEDS ORDERED: NS 250 ML ONE (18:30)
--- NOTE | 2016-12-13 19:09 | PROGRESS NOTE ---
DATE: 12/13/2016 SUBJECTIVE: Today Ms. Renner refers not to be doing well. She says she is feeling nauseated and she continues to be vomiting however when I went in there the bedside lizarraga she has been vomiting in is completely clean. She however did say that in the nurse chef's assistant just emptied it. There is no documentation of any emesis since . OBJECTIVE: Vital signs: Blood pressure is 137/69, pulse of 105, respiration is 18, temperature is 98.4. General: Ms. Renner is a 50-year-old female. She is in bed. She is not in any distress. HEENT: Mucosa is slightly pale, moist, anicteric, acyanotic. Neck: Supple. Chest: Good air entry bilateral. No crepitations. No rhonchi. Cardiovascular : Regular rate and rhythm. No murmurs, no rubs. No gallops. Abdomen: Soft, distended but nontender. Bowel sounds are decreased. MEASUREMENT TECHNICIAN: Patient is awake and alert and oriented x4. There is no focal neurological deficit. Extremities: No pedal edema. Distal pulses are present. LABORATORY DATA: WBC is 6.43, hemoglobin is 9.0, platelet count of 253,000. Chemistry is also reviewed completely unremarkable. Ferritin is 30, iron is 28 with a percent saturation of 9. Urine is positive for Enterobacter aeruginosa which is pansensitive. ASSESSMENT: 1. Abdominal pain likely secondary to constipation. 2. Nausea and vomiting likely secondary to underlying constipation. 3. Gastric outlet obstruction versus gastroparesis on CT scan. We are going to continue addressing the underlying metabolic derangement. If patient continues to have nausea and vomiting we would have to end up doing gastric empty studies and having the patient to see a GI. 4. Hyponatremia improved. 5. Diabetes mellitus with a presenting A1c of 8.8. Will continue with the sliding scale. 6. Microcytic anemia secondary to iron deficiency. Patient refers to have a lot of bleeding during menses and a CT scan shows uterine fibroid. We going to give her iron infusion today and continue with oral supplement. She has been advised to follow up with an [facility] B[facility]CHER for the fibroid workup. 7. Menorrhagia likely secondary to underlying fibroids. Patient will follow up with an LOG BUNCHER. 8. Enterobacter aerogenes urinary tract infection. Will continue with the ceftriaxone for today. So in general I think Ms. Renner is stable. She continues to refer nausea, vomiting. We are going to discontinue all narcotics in her treatment. We are going to be more aggressive in the bowel regimen. I asked her to be more mobile and sit up in a chair to help the bowel to move. If these measures do not improve will probably have to end up doing a gastric empty study and have GI to look inside. If there is significant improvement and patient has bowel movement will probably might be able to discharge her tomorrow. cc: Xu Leo MD MTDD
[2016-12-13] MEDS: PRAVACHOL PO SCH (20:37)
[2016-12-13] MEDS: AMBIEN PO SCH (20:37)
[2016-12-14] MEDS: NEURONTIN PO SCH ×4 (04:22→21:08)
[2016-12-14] MEDS: SODIUM CHLORIDE 0.9% INJ PRN ×3 (04:22→21:07)
[2016-12-14] MEDS: PHENERGAN IV PRN ×3 (04:22→21:07)
[2016-12-14] MEDS: NS 1,000 ML IV SCH ×4 (04:23→21:06)
[2016-12-14] MEDS: HUMULIN R (PARKWAY) SUBQ SCH ×4 (06:15→21:07)
--- NOTE | 2016-12-14 07:52 | Diag Imaging Result Doc PS360 ---
EXAM: KUB ABDOMEN HISTORY: constipation TECHNIQUE: KUB COMMENT: There is gas and stool throughout the colon. Stomach and small bowel are not distended. There is no evidence of organomegaly or mass. Surgical clips are again noted in the right upper quadrant suggesting previous cholecystectomy. Compared to 03/26/2016 the appearance of the abdomen has not changed significantly. IMPRESSION: Constipation. Electronically signed by Mendel Corona 12/14/2016 7:50 AM
[2016-12-14 08:15] LABS: MANUAL DIFF NEEDED? NO
[2016-12-14] MEDS ORDERED: GOLYTELY PO ONE (08:17)
[2016-12-14 08:24] LABS: BASO% 0.4 % (0.0-0.8); EOS# 0.11 X1000 (0.0-0.7); EOS% 2.1 % (0.0-10.0); HEMATOCRIT 27.6 % (37.0-47.0); HEMOGLOBIN 8.5 g/dL (12.0-16.0); IMM GRAN# 0.01 X1000 (0.0-0.04); IMM GRAN% 0.2 % (0.0-0.5); LYMPH# 1.54 X1000 (1.2-3.4); LYMPH% 29.1 % (20.5-51.1); MCH 24.6 PG (27-31); MCHC 30.8 g/dL (33-37); MONO# 0.57 X1000 (0.11-0.59); MONO% 10.8 % (1.7-9.3); MPV 9.9 FL (7.4-10.4); NEUT% 57.4 % (42.2-75.2); PLT 221 X1000 (130-400); RBC 3.45 XMIL (4.2-5.4)
[2016-12-14 08:27] LABS: AGAP 7; BUN 12 mg/dL (8-22); CALCIUM 8.5 mg/dL (8.8-10.2); CHLORIDE 103 mmol/L (98-107); COSMO 279; MAGNESIUM 1.8 mg/dL (1.5-2.7); POTASSIUM 3.5 mmol/L (3.5-5.1); SODIUM 138 mmol/L (136-145); TCO2 28 mmol/L (25-35)
[2016-12-14] MEDS: COLACE PO SCH ×2 (09:04→21:07)
[2016-12-14] MEDS: NEXIUM PO SCH (09:04)
[2016-12-14] MEDS: KLOR-CON PO SCH (09:04)
[2016-12-14] MEDS: THERA M PLUS PO SCH (09:04)
[2016-12-14] MEDS: LANTUS INSULIN (PARKWAY) SUBQ SCH ×2 (09:04→21:07)
[2016-12-14] MEDS: LACTULOSE PO SCH (09:04)
[2016-12-14] MEDS: ALDACTONE PO SCH (09:05)
[2016-12-14] MEDS: MIRALAX PO SCH (09:05)
[2016-12-14] MEDS: ROCEPHIN 1 GM in NS 50 ML IV SCH (09:17)
--- NOTE | 2016-12-14 18:31 | PROGRESS NOTE ---
DATE: 12/14/2016 SUBJECTIVE: Today, Ms. Teran refers to be doing a little better, much stronger. However, has not had any bowel movement yet. OBJECTIVE: Vital signs: Blood pressure is 152/72, pulse of 99, respirations 16, temperature is 98.1 degrees. Patient is saturating 99% on room air. General: Ms. Teran is a 51-year-old female. She is in bed, not in any remarkable distress. HEENT: Mucosa is pink and moist. Anicteric. Acyanotic. Neck: Supple. Chest: Good air entry bilaterally. No crepitations. No rhonchi. Cardiovascular: Regular rate and rhythm. There are no murmurs, no rubs, no gallops. Abdomen: Soft, distended, nontender, more distended in the mid to upper abdomen. Central Nervous System: Patient is awake, alert, and oriented x4. There is no focal neurological deficit. LABORATORY DATA: WBC is 5.29, hemoglobin is 8.5, platelet count of 221,000. Chemistry is reviewed, and completely unremarkable. Glucose is 164. A repeat KUB continues to show significant constipation. The patient has not had any bowel movement. ASSESSMENT AND PLAN: 1. Abdominal pain, nausea, and vomiting, secondary to constipation. 2. Gastric outlet obstruction versus gastroparesis on CT scan. Subsequent imaging studies seem to have improved. I think this was all more related to the constipation. 3. Hyponatremia on presentation, resolved. 4. Diabetes mellitus, with presenting A1c of 8.8. We will continue with the insulin regimen. 5. Microcytic anemia secondary to iron deficiency. Patient has been given iron infusion. We will place her on iron supplements. 6. Menorrhagia secondary to uterine fibroids. Patient has been advised to follow up with MANAGER REIMBURSEMENT. 7. Enterobacter aerogenes urinary tract infection. Patient is on ceftriaxone. Today is day 4. We will plan to treat this for 5 days. After tomorrow, we can discontinue the antibiotics. In general, Ms. Renner is doing pretty good. She presented on the 12th because of nausea and vomiting. The workup had shown she was severely constipated. Nausea and vomiting has resolved, and abdominal pain has improved. Patient however has not had any bowel movement. We have started her on GoLYTELY today to see if that will help with her bowel movement. Hopefully, if her bowel gets to move, we will be able to discharge her tomorrow as well. Of note, Ms. Teran was on some narcotics at home. All of these have been withheld. TSH is normal. cc: Xu Leo MD
[2016-12-14] MEDS: PRAVACHOL PO SCH (21:07)
[2016-12-14] MEDS: AMBIEN PO SCH (21:08)
[2016-12-15] MEDS: NS 1,000 ML IV SCH ×4 (02:12→20:46)
[2016-12-15] MEDS: SODIUM CHLORIDE 0.9% INJ PRN ×3 (05:45→20:46)
[2016-12-15] MEDS: NEURONTIN PO SCH ×3 (05:46→20:48)
[2016-12-15] MEDS: PHENERGAN IV PRN ×4 (05:46→20:47)
[2016-12-15] MEDS: HUMULIN R (PARKWAY) SUBQ SCH ×4 (05:59→20:46)
[2016-12-15] MEDS: KLOR-CON PO SCH (10:11)
[2016-12-15] MEDS: COLACE PO SCH ×2 (10:11→20:48)
[2016-12-15] MEDS: ALDACTONE PO SCH (10:11)
[2016-12-15] MEDS: LACTULOSE PO SCH (10:11)
[2016-12-15] MEDS: THERA M PLUS PO SCH (10:11)
[2016-12-15] MEDS: LANTUS INSULIN (PARKWAY) SUBQ SCH ×2 (10:11→20:47)
[2016-12-15] MEDS: ROCEPHIN 1 GM in NS 50 ML IV SCH (10:12)
[2016-12-15] MEDS: NEXIUM PO SCH (10:23)
--- NOTE | 2016-12-15 12:51 | Diag Imaging Result Doc PS360 ---
KUB ABDOMEN - 12/15/2016 INDICATION: constipation TECHNIQUE: COMPARISON: 12/14/2016 FINDINGS: There is a nonobstructive bowel gas pattern. No free air or abdominal calcifications. There is a grossly normal quantity of stool. IMPRESSION: No acute disease. Electronically signed by Lanre Magaña 12/15/2016 12:48 PM
--- NOTE | 2016-12-15 13:46 | Diag Imaging Result Doc PS360 ---
EXAM: US ABDOMEN-COMPLETE HISTORY: constipation, abd pain TECHNIQUE: COMPARISON: None. FINDINGS: The pancreas is obscured. The aorta and inferior vena cava are also poorly seen. The gallbladder has been removed. No focal hepatic abnormality. The common bile duct measures 6 mm. Normal right kidney. No hydronephrosis. Spleen is not enlarged. Normal left kidney. No hydronephrosis. There is a small amount of fluid about the liver. No fluid in the left upper quadrant. IMPRESSION: 1.Cholecystectomy 2.Trace free fluid about the liver Electronically signed by Melvin Quiros 12/15/2016 1:44 PM
--- NOTE | 2016-12-15 20:39 | PROGRESS NOTE ---
DATE: 12/15/2016 SUBJECTIVE: The patient notes that she is still having intense abdominal pain with lots of cramping. Denies any blood in her stool. Does state that she had a small bowel movement yesterday. Denies any urinary complaints. Denies any fevers chills. OBJECTIVE: Temperature 98.6 degrees, pulse 104, respiratory 23, BP 151/99. General: Patient is awake and alert. She is lying in bed. She is in no respiratory distress. Pleasant to talk with. Appears awake, alert and oriented. Neck: Supple. No JVD. HEENT: Normocephalic, atraumatic. VALERIANO. Oropharynx clear. CV: Regular rate. Chest: Relatively clear, nonlabored. Abdomen: Soft, nondistended. Appears to be diffusely tender, decreased but positive bowel sounds. Extremities: Moves all extremities. No edema. Neurologic: No focal changes. LABS: Are essentially normal. CT of the abdomen is grossly normal. ASSESSMENT: 1. Abdominal pain. 2. Nausea and vomiting. 3. Constipation. CT showed some stool in the colon, but grossly normal. 4. Gastric outlet obstruction appears improved. 5. Hyponatremia resolved. 6. Diabetes. The patient's A1c is 8.8 which certainly can be causing gastroparesis and causing all of her current symptoms. Discussed this in great detail with the patient. She currently takes Lantus 40 b.i.d. We will get nutrition involved and continue to follow. 7. Microcytic anemia. 8. Menorrhagia secondary to uterine fibroids. PLAN: Her constipation certainly can be multifactorial to include decreased oral intake, diabetes with very poor control with an A1c of 8.8 plus her pain and pain medication. We will continue to follow. We will stop her GoLYTELY currently as this appears to be causing more cramping and her CT was essentially negative. cc: Eulogio Diggs MD
[2016-12-15] MEDS: PRAVACHOL PO SCH (20:48)
[2016-12-15] MEDS: AMBIEN PO SCH (20:48)
[2016-12-15] MEDS: TYLENOL PO PRN (21:03)
[2016-12-15] MEDS ORDERED: NORCO-5 PO PRN (21:14)
[2016-12-16] MEDS: NS 1,000 ML IV SCH ×3 (01:03→15:09)
[2016-12-16] MEDS: NEXIUM PO SCH (06:02)
[2016-12-16] MEDS: PHENERGAN IV PRN ×2 (06:02→21:48)
[2016-12-16] MEDS: NEURONTIN PO SCH ×3 (06:02→21:37)
[2016-12-16] MEDS: HUMULIN R (PARKWAY) SUBQ SCH ×4 (06:03→21:48)
[2016-12-16] MEDS: SODIUM CHLORIDE 0.9% INJ PRN (06:03)
[2016-12-16] MEDS ORDERED: LEVSIN-SL SL PRN (08:27)
[2016-12-16] MEDS ORDERED: NON-FORMULARY BULK MED ONE (09:00)
[2016-12-16] MEDS: COLACE PO SCH ×2 (09:05→21:37)
[2016-12-16] MEDS: LACTULOSE PO SCH (09:05)
[2016-12-16] MEDS: THERA M PLUS PO SCH (09:05)
[2016-12-16] MEDS: KLOR-CON PO SCH (09:05)
[2016-12-16] MEDS: LEVAQUIN PO SCH (09:06)
[2016-12-16] MEDS: LANTUS INSULIN (PARKWAY) SUBQ SCH ×2 (09:06→21:37)
[2016-12-16] MEDS: ALDACTONE PO SCH (09:06)
[2016-12-16 11:32] LABS: URINE MICROSCOPIC NEEDED? NO; URINE SOURCE VOIDED
[2016-12-16 11:44] LABS: BILIRUBIN URINE NEGATIVE (NEGATIVE); BLOOD URINE NEGATIVE (NEGATIVE); CLARITY CLEAR (CLEAR); COLOR YELLOW; LEUKOCYTES URINE NEGATIVE (NEGATIVE); NITRITE URINE NEGATIVE (NEGATIVE); PROTEIN URINE NEGATIVE (NEGATIVE); SP GRAVITY URINE 1.015; UROBILINOGEN URINE NORMAL
[2016-12-16] MEDS ORDERED: PHENERGAN PO PRN (12:06)
[2016-12-16] MEDS ORDERED: PHENERGAN IM ONE (13:04)
--- NOTE | 2016-12-16 14:05 | Diag Imaging Result Doc PS360 ---
EXAM: CHEST-2 VIEWS HISTORY: FEVER TECHNIQUE: Three views COMPARISON: 06/16/2016 FINDINGS: The lungs are well expanded. The heart is not enlarged. Sternal wires are present. The vessels are not distended. There are no infiltrates. No pleural effusions. IMPRESSION: No pneumonia. Electronically signed by Melvin Quiros 12/16/2016 2:03 PM
[2016-12-16] MEDS ORDERED: SODIUM CHLORIDE 0.9% INJ PRN (21:26)
[2016-12-16] MEDS: AMBIEN PO SCH (21:37)
[2016-12-16] MEDS: PRAVACHOL PO SCH (21:37)
[2016-12-16] MEDS: TYLENOL PO PRN (21:49)
--- NOTE | 2016-12-16 22:14 | PROGRESS NOTE ---
DATE: 12/16/2016 SUBJECTIVE: Patient states she still feels constipated, still having some cramping and nausea , denies any fevers or chills, denies hematochezia, melena, denies hematemesis. PHYSICAL: Vital signs: Temperature 98.5, pulse 87, respiratory 16, BP 120/62. General: Patient is awake, alert, she is currently no respiratory distress, pleasant to talk with. States she is nauseated. HEENT: Normocephalic. Atraumatic. VALERIANO. Neck: Supple. No JVD. CV: Regular rate. Nonlabored. Abdomen: Soft. Tender to palpation diffusely. ASSESSMENT: 1. Gastroparesis . 2. Diabetes with very poor control with an A1c of 8.8. 3. Enterobacter aerogenes urinary tract infection. PLAN: The patient's recent CT did not show any constipation although she states she is still feeling full. This is likely related to her gastroparesis due to her very poor control of her diabetes at home. Will continue to follow. Hopefully her symptoms will resolve and she can be discharged home, if not certainly may need to get transfer to [facility] for an EGD. Will see how she is doing in the a.m. before decision. cc: Eulogio Diggs MD
[2016-12-17] MEDS: PHENERGAN IV PRN (04:00)
[2016-12-17] MEDS: NS 1,000 ML IV SCH ×2 (04:07→08:46)
[2016-12-17] MEDS: NEXIUM PO SCH (06:16)
[2016-12-17] MEDS: NEURONTIN PO SCH ×2 (06:16→12:36)
[2016-12-17] MEDS: HUMULIN R (PARKWAY) SUBQ SCH ×2 (06:16→12:36)
[2016-12-17] MEDS ORDERED: MUCOMYST 20% INH SCH (08:30)
[2016-12-17] MEDS: LACTULOSE PO SCH (08:37)
[2016-12-17] MEDS: ALDACTONE PO SCH (08:38)
[2016-12-17] MEDS: THERA M PLUS PO SCH (08:38)
[2016-12-17] MEDS: COLACE PO SCH (08:38)
[2016-12-17] MEDS: KLOR-CON PO SCH (08:38)
[2016-12-17] MEDS: LEVAQUIN PO SCH (08:38)
[2016-12-17] MEDS ORDERED: LANTUS INSULIN (PARKWAY) SUBQ SCH (09:00)
[2016-12-17 09:58] LABS: HEMATOCRIT 30.5 % (37.0-47.0); HEMOGLOBIN 9.2 g/dL (12.0-16.0); MCH 24.1 PG (27-31); MCHC 30.2 g/dL (33-37); MCV 79.8 FL (81-99); RBC 3.82 XMIL (4.2-5.4)
[2016-12-17 10:22] LABS: AGAP 11; ALBUMIN 3.2 g/dL (3.5-5.0); ALKALINE PHOSPHATASE 147 U/L (32-104); BUN 8 mg/dL (8-22); CHLORIDE 98 mmol/L (98-107); COSMO 281; GOT 42 U/L (10-30); GPT 51 U/L (10-36); POTASSIUM 3.9 mmol/L (3.5-5.1); SODIUM 136 mmol/L (136-145); TCO2 27 mmol/L (25-35); TOTAL BILIRUBIN < 0.15 mg/dL (0.20-1.00); TOTAL PROTEIN 6.9 g/dL (6.3-8.3)
[2016-12-17 13:07] VITALS: BP 122/86
--- NOTE | 2016-12-18 10:46 | DISCHARGE SUMMARY ---
ADMISSION DATE: 12/10/2016 DISCHARGE DATE: 12/17/2016 DIAGNOSES: 1. Gastroparesis. 2. Diabetes with poor control with an A1c of 8.8. 3. Enterobacter urinary tract infection. 4. Urinary tract infection, resolved. DIAGNOSTICS: 1. 12/09/2016, CT scan of the abdomen and pelvis without contrast revealed constipation. Possibility of gastric outlet obstruction or gastroparesis cannot be excluded. No evidence of acute renal stones. 2. 12/14/2016, abdominal x-ray revealed constipation with gas and stool throughout the colon. Stomach and small bowel are not distended. No evidence of organomegaly or mass. 3. 12/15/2016, abdominal ultrasound revealed cholecystectomy, trace free fluid about the liver. 4. 12/15/2016, abdominal x-ray revealed no acute disease with nonobstructive bowel gas pattern. 5. 12/16/2016, chest x-ray revealed no pneumonia. 6. Urine culture revealed Enterobacter aerogenes. HOSPITAL COURSE: Ms. Renner presented to the emergency room complaining of lower abdominal pain with nausea and vomiting for 2 days. She was found to have an Enterobacter UTI for which she received IV Rocephin. Once sensitivities returned, she was changed to p.o. Levaquin, which she will be discharged home on. They believe she has improved. Nausea and vomiting have resolved. She is able to eat without any abdominal pain, nausea, or vomiting. She did have an A1c of 8.8. The staff and I did discuss the importance of maintaining a diet. Will meet with the dietitian for instruction. Blood sugars were in the 130 looks like 250 range. She was placed on pattern blood glucose with sliding scale insulin. We did trend electrolytes as well as hematology. DISCHARGE PHYSICAL EXAM: Cardiovascular: Regular rate and rhythm. S1 and S2 appreciated. Pulmonary: Breath sounds are clear with no increased work of breathing noted. Gastrointestinal: Abdomen is soft, nontender, nondistended. Bowel sounds in all 4 quadrants. Back: No CVAT. No spine tenderness. Musculoskeletal: Good range of motion in the joints. Neurologic: She is alert and oriented x3, with cranial nerves 2-12 grossly intact. Extremities: No clubbing, cyanosis, or edema. Calves are nontender, and pulses are palpable x4. Discharge Vital Signs: Blood pressure is 122/80 with a heart rate of 86, respirations 18, temperature 97.8 degrees, with a room air sats of 97%-98%. DISCHARGE MEDICATIONS: 1. Levaquin 500 mg daily x1 week. 2. Klor-Con 20 mEq daily. 3. Pravachol 1 at bedtime. 4. Spironolactone 25 mg daily. 5. Ambien 10 mg at bedtime. 6. Lantus insulin 40 units subcu b.i.d. 7. Humalog 35 units as directed. 8. Albuterol inhaler 3-4 times a day as needed for wheezing. 9. Colace 100 b.i.d. 10. Cymbalta 60 mg b.i.d. 11. Nexium 40 mg daily. 12. Lasix 80 mg daily. 13. Neurontin 800 3 times a day. DISCHARGE ACTIVITY: As tolerated. FOLLOWUP: She needs to follow up with her primary care provider, Yue Pope, in the next 1-2 weeks, sooner if needed. DISPOSITION AND CONDITION ON DISCHARGE: She is being discharged home in stable condition with family members. TIME SPENT: This is a greater than 30 minute discharge. Dictated by ALEXANDRA Max for Eulogio Diggs MD cc: ALEXANDRA Max MD
--- NOTE | 2016-12-19 03:28 | DISCHARGE SUMMARY ---
ADMISSION DATE: 12/09/2016 DISCHARGE DATE: 12/17/2016 DISCHARGE DIAGNOSES: 1. Abdominal pain , resolved. 2. Gastric bowel obstruction with gastroparesis, improved. 3. Diabetes type 2 with extremely poor control at home with an A1c of 8.8. Patient is very noncompliant with her diet restrictions. 4. Microcytic anemia secondary to iron deficiency. 5. Metromenorrhagia. 6. Enterobacter aerogenes urinary tract infection. CONSULTATIONS: None. PROCEDURES: None. BRIEF HISTORY: Patient was admitted. She was watched several days secondary to the nausea and vomiting. Unfortunately, she has known history of allergies to Reglan and erythromycin and according to Ms. Teran, everything except IV or IM Phenergan. However, thankfully, she currently states that she is feeling better. She is eating better. Her abdominal pain has improved. Her nausea has improved. It is not completely resolved. PHYSICAL EXAMINATION: Or vital signs were stable. She was in no distress. DISCHARGE PLAN: Patient will be discharged home. She is instructed to follow up with her primary care as well as GI outpatient to see if they need to try other medications for her chronic gastroparesis. Thirty-six minutes was spent in total care. cc: Eulogio Diggs MD
== END 2016-12-17 13:16 | disposition home or self-care (01) ==
LOC: P.ED 16:36 → SUATTDRO 21:16 → P.MEDSURG 21:16
PROVIDERS: ATTEND Family Medicine